=== PATIENT | female | born 1970 | race Caucasian/White ===

== ENCOUNTER → 2016-09-29 | Outpatient (CLI) | payer OTHER ==
[~2016-09-29] MED LIST: CEPH500C2 PO; ESOM20CA PO; LEVO88TA3 PO
[2016-09-29 17:17] LABS: BASO % 0.5 %; BASO ABS # 0.05 K/uL (0-0.2); EOS % 1.8 %; HEMATOCRIT 32.7 % (37-47); IG% 0.3 %; LYMPH % 39.5 %; LYMPH ABS # 4.14 K/uL (1.2-3.4); MEAN CELL VOLUME 66.7 fL (80-100); MEAN CORPUSCULAR HEMOGLOBIN 20.6 pg (25-34); MEAN CORPUSCULAR HGB CONC 30.9 g/dl (32-36); MEAN PLATELET VOLUME 8.6 fL (7.4-10.4); MONO % 5.8 %; NEUT % 52.1 %; PLATELET COUNT 549 K/uL (130-400); WHITE BLOOD COUNT 10.47 K/uL (4.8-10.8)
[2016-09-29 17:35] LABS: ESTIMATED AVERAGE GLUCOSE 171 mg/dl; HA1C FLAG Normal (Normal)
[2016-09-29 18:51] LABS: COMPLETE YES; MICROCYTOSIS PRESENT; OVALOCYTES 1+; POLYCHROMASIA 1+; SCHISTOCYTES 1+
[2016-09-29 18:59] LABS: AST/SGOT 20 U/L (15-37); BLOOD UREA NITROGEN 9 mg/dl (7-18); BUN/CREATININE RATIO 10.3 (10-20); CALCIUM 8.3 mg/dl (8.5-10.1); CARBON DIOXIDE 25 mmol/L (21-32); CHLORIDE 105 mmol/L (98-107); CREATININE 0.87 mg/dl (0.60-1.20); GLUCOSE 159 mg/dl (70-99); SODIUM 140 mmol/L (136-145)
[2016-09-29 19:13] LABS: ALB/GLOB RATIO 0.9 (0.9-2); ALKALINE PHOSPHATASE 117 U/L (45-117); ALT/SGPT 35 U/L (12-78)
[2016-09-29 20:04] LABS: RATIO 4.6 mcg/mg (0-30.0)
== END | disposition home or self-care (01) ==
LOC: C.LABBFT 13:03
PROVIDERS: ATTEND Internal Medicine
DX: E03.9 Hypothyroidism, unspecified (principal); E11.9 Type 2 diabetes mellitus without complications

== ENCOUNTER → 2016-10-19 | Outpatient (CLI) | payer OTHER | END | disposition home or self-care (01) | LOC: C.PAPS 10:14 | PROVIDERS: ATTEND Obstetrics & Gynecology | DX: Z12.4 Encounter for screening for malignant neoplasm of cervix (principal) ==

== ENCOUNTER 2017-09-16 14:07 | Emergency (ER) | payer OTHER ==
[~2017-09-16] VITALS: Ht 167.6 cm; Wt 96.9 kg
[2017-09-16 14:15] VITALS: Ht 167.6 cm; Wt 96.9 kg
[2017-09-16] MEDS ORDERED: ONDANSETRON INJ 2 MG/ML 2 ML VIAL IV STA (14:29)
[2017-09-16] MEDS ORDERED: KETOROLAC TROMETHAMINE 30 MG/ML VIAL IV STA (14:29)
[2017-09-16] MEDS ORDERED: MoRPHine SULFATE 10 MG/ML CARP/VIAL IV STA (14:29)
[2017-09-16 14:42] VITALS: TEMP 36.6
--- NOTE | 2017-09-16 14:51 | DIAGNOSTIC IMAGING REPORT ---
CHEST ONE VIEW PORTABLE CLINICAL HISTORY: 46 years-old Female presenting with epigastric abd pain. TECHNIQUE: Portable upright AP view of the chest was obtained. COMPARISON: None. FINDINGS: Cardiomediastinal silhouette normal. Lungs and pleural spaces clear. Osseous structures normal. Upper abdomen normal. IMPRESSION: 1. No acute cardiopulmonary disease. Electronically signed by: Shayne Raya M.D. 09/16/2017 2:50 PM Dictated Date/Time: 09/16/2017 2:49 PM
[2017-09-16 15:08] LABS: BASO % 0.4 %; BASO ABS # 0.05 K/uL (0-0.2); EOS % 1.6 %; EOS ABS # 0.21 K/uL (0-0.5); HEMATOCRIT 49.6 % (37-47); HEMOGLOBIN 17.5 g/dL (12.0-16.0); IG# 0.04 K/uL (0.00-0.02); LYMPH % 29.3 %; LYMPH ABS # 3.85 K/uL (1.2-3.4); MEAN CORPUSCULAR HEMOGLOBIN 31.8 pg (25-34); MEAN CORPUSCULAR HGB CONC 35.3 g/dl (32-36); MEAN PLATELET VOLUME 9.5 fL (7.4-10.4); MONO % 4.5 %; MONO ABS # 0.59 K/uL (0.11-0.59); NEUT % 63.9 %; PLATELET COUNT 334 K/uL (130-400); RED CELL DISTRIBUTION WIDTH CV 14.1 % (11.5-14.5); RED CELL DISTRIBUTION WIDTH SD 46.3 fL (36.4-46.3); WHITE BLOOD COUNT 13.14 K/uL (4.8-10.8)
[2017-09-16] MEDS ORDERED: ATOR10TA82 PO (15:09)
[2017-09-16] MEDS ORDERED: FERR1TAB23 PO (15:09)
[2017-09-16] MEDS ORDERED: ASPI325T39 PO (15:09)
[2017-09-16 15:34] LABS: ALBUMIN 4.2 gm/dl (3.4-5.0); ALT/SGPT 44 U/L (12-78); BLOOD UREA NITROGEN 8 mg/dl (7-18); CALCIUM 8.9 mg/dl (8.5-10.1); CARBON DIOXIDE 24 mmol/L (21-32); CREATININE 0.76 mg/dl (0.60-1.20); GLUCOSE 223 mg/dl (70-99); LIPASE 188 U/L (73-393); POTASSIUM 3.8 mmol/L (3.5-5.1); SODIUM 135 mmol/L (136-145)
[2017-09-16 15:39] LABS: ALKALINE PHOSPHATASE 111 U/L (45-117); AST/SGOT 21 U/L (15-37); TOTAL PROTEIN 8.7 gm/dl (6.4-8.2)
[2017-09-16] MEDS ORDERED: OPTIRAY 320 IV PRN (16:30)
--- NOTE | 2017-09-16 16:57 | DIAGNOSTIC IMAGING REPORT ---
ABD/PELVIS IV CONTRAST ONLY CLINICAL HISTORY: 46 years-old Female presenting with LUQ abd pain . TECHNIQUE: Multidetector CT of the abdomen and pelvis was performed after the administration of intravenous contrast. IV contrast: 93 mL of Optiray 320. A dose lowering technique was used consistent with the principles of ALARA (as low as reasonably achievable). COMPARISON: None. CT DOSE (mGy.cm): The estimated cumulative dose is 1009.78 mGy.cm. 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 Lung bases: Minimal basilar opacities, likely atelectasis. Normal heart size. No pericardial or pleural effusion. Liver: Normal morphology. No liver lesion. Patent hepatic vasculature. Biliary: Mild biliary ductal prominence likely a reservoir effect in the post cholecystectomy state. Gallbladder surgically absent. Pancreas: Normal. Spleen: Normal. Adrenal glands: Normal. Kidneys and ureters: Focal cortical deformity laterally at the right upper pole possibly prior infection, infarct, or trauma. Hypodensity in the interpolar region of the left kidney likely simple cyst. Additional smaller suspected cyst at the left upper pole and in the right renal parenchyma. No nephrolithiasis. No hydronephrosis. Ureters normal. Bladder: Incompletely evaluated secondary to underdistention. Pelvic organs: Normal uterus. Simple appearing 4.5 cm cyst in the left ovary. Right ovary normal. Bowel: Normal appendix. No bowel obstruction. Peritoneal cavity: No free fluid or intraperitoneal gas. Lymph nodes: No enlarged lymph nodes in the abdomen or pelvis. Vasculature: Atherosclerosis of the normal caliber abdominal aorta. IVC patent. Abdominal wall: Small fat-containing umbilical hernia. Musculoskeletal: Bilateral pars defects of L5. IMPRESSION: 1. No acute intra-abdominal pathology. 2. 4.5 cm functional cyst in the left ovary. In a premenopausal female with a probably benign cysts of this size, follow-up ultrasound is recommended in 6-12 weeks per the management [employer] incidental findings committee recommendations. Electronically signed by: Shayne Raya M.D. 09/16/2017 4:56 PM Dictated Date/Time: 09/16/2017 4:50 PM
[2017-09-16 18:00] VITALS: BP 136/88; PULSE 88; O2SAT 96
--- NOTE | 2017-09-16 20:13 | EMERGENCY ROOM VISIT NOTE ---
History Report prepared by Mynor: Yohana Ornelas Under the Supervision of: Dr. Niles Radford D.O. First contact with patient: 14:19 Chief Complaint: ABDOMINAL PAIN Stated Complaint: LEFT SIDE PAIN Nursing Triage Summary: patient c/o left upper abdominal pain, nausea and diarrhea x4 days. History of Present Illness The patient is a 46 year old female who presents to the Emergency Room with complaints of persistent abdominal pain that began 4 days ago. The patient states that avoiding movement helps relieve her pain. Any kind of twisting turning bending or palpation of her left upper quadrant worsens the pain. She notes her discomfort feels like a pulled muscle. The patient states that she has nausea, diarrhea, and headaches. She notes she had a sinus infection and bronchitis 2 weeks ago. The patient states she has had a cholecystectomy. She notes her last normal menstrual period was one month ago. The patient states that last year she had a blood clot in her pinky toe, noting she was placed on Aspirin. Pt denies change in vision, fevers, chest pain, shortness of breath, vomiting, pain with urination, and melena. Patient denies diabetes, hypertension , hyperlipidemia, CAD, history of sudden at a young age, and smoking. Patient denies swelling of calves, recent trips, history of immobilization or recent surgery, hemoptysis, history of malignancy, or control/estrogen use. Source of History: patient Onset: 4 days ago Position: abdomen Quality: other (abdominal pain) Timing: other (persistent) Modifying Factors (Worsening): movement Associated Symptoms: + nausea, + diarrhea Review of Systems See HPI for pertinent positives & negatives. A total of 10 systems reviewed and were otherwise negative. Past Medical & Surgical Medical Problems: (1) Bronchitis (2) Sinus infection Family History Patient reports no known family medical history. Social History Smoking Status: Never Smoker Alcohol Use: none Drug Use: none Marital Status: in relationship Housing Status: lives with significant other Occupation Status: employed Current/Historical Medications Scheduled Aspirin (Aspirin Ec), 325 MG PO DAILY Atorvastatin (Lipitor), Unknown Dose PO DAILY Esomeprazole Magnesium (Nexium), 20 MG PO DAILY Ferrous Sulfate (Iron), 325 MG PO DAILY Levothyroxine Sodium (Levothyroxine Sodium), 88 MCG PO DAILY Allergies Coded Allergies: Pantoprazole (Verified Allergy, Unknown, SWELLING OF LIPS, 09/16/17) Physical Exam Vital Signs Date Time Temp Pulse Resp B/P (MAP) Pulse Ox O2 Delivery O2 Flow Rate FiO2 09/16/17 18:00 88 18 136/88 96 09/16/17 16:00 88 18 140/90 96 Room Air 09/16/17 14:42 36.6 91 20 142/87 99 Room Air 09/16/17 14:37 91 09/16/17 14:15 36.6 103 20 149/100 99 Room Air Physical Exam GENERAL: Sitting up in bed, holding LUQ, alert, well appearing, well nourished, minimal distress, non-toxic EYE EXAM: normal conjunctiva. OROPHARYNX: no exudate, no erythema, lips, buccal mucosa, and tongue normal and mucous membranes are moist NECK: supple, no nuchal rigidity, no adenopathy, non-tender LUNGS: Clear to auscultation. Normal chest wall mechanics HEART: no murmurs, S1 normal and S2 normal ABDOMEN: Tenderness in epigastric region, tracking over left inferior rib cage to left mid axillary. Abdomen soft, normo-active bowel sounds, no masses, no rebound or guarding. BACK: Back is symmetrical on inspection and there is no deformity, no midline tenderness, no CVA tenderness. SKIN: no rashes and no bruising UPPER EXTREMITIES: upper extremities are grossly normal. LOWER EXTREMITIES: No pitting edema. Calves are equal bilateral NEURO EXAM: Normal sensorium, cranial nerves II-XII grossly intact, normal speech, no gross weakness of arms, no gross weakness of legs. Medical Decision & Procedures ER Provider Diagnostic Interpretation: Radiology results as stated below per my review and the radiologist's interpretation: CHEST ONE VIEW PORTABLE CLINICAL HISTORY: 46 years-old Female presenting with epigastric abd pain. TECHNIQUE: Portable upright AP view of the chest was obtained. COMPARISON: None. FINDINGS: Cardiomediastinal silhouette normal. Lungs and pleural spaces clear. Osseous structures normal. Upper abdomen normal. IMPRESSION: 1. No acute cardiopulmonary disease. Electronically signed by: Shayne Raya M.D. 09/16/2017 2:50 PM Dictated Date/Time: 09/16/2017 2:49 PM ABD/PELVIS IV CONTRAST ONLY CLINICAL HISTORY: 46 years-old Female presenting with LUQ abd pain . TECHNIQUE: Multidetector CT of the abdomen and pelvis was performed after the administration of intravenous contrast. IV contrast: 93 mL of Optiray 320. A dose lowering technique was used consistent with the principles of ALARA (as low as reasonably achievable). COMPARISON: None. CT DOSE (mGy.cm): The estimated cumulative dose is 1009.78 mGy.cm. 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 Lung bases: Minimal basilar opacities, likely atelectasis. Normal heart size. No pericardial or pleural effusion. Liver: Normal morphology. No liver lesion. Patent hepatic vasculature. Biliary: Mild biliary ductal prominence likely a reservoir effect in the post cholecystectomy state. Gallbladder surgically absent. Pancreas: Normal. Spleen: Normal. Adrenal glands: Normal. Kidneys and ureters: Focal cortical deformity laterally at the right upper pole possibly prior infection, infarct, or trauma. Hypodensity in the interpolar region of the left kidney likely simple cyst. Additional smaller suspected cyst at the left upper pole and in the right renal parenchyma. No nephrolithiasis. No hydronephrosis. Ureters normal. Bladder: Incompletely evaluated secondary to underdistention. Pelvic organs: Normal uterus. Simple appearing 4.5 cm cyst in the left ovary. Right ovary normal. Bowel: Normal appendix. No bowel obstruction. Peritoneal cavity: No free fluid or intraperitoneal gas. Lymph nodes: No enlarged lymph nodes in the abdomen or pelvis. Vasculature: Atherosclerosis of the normal caliber abdominal aorta. IVC patent. Abdominal wall: Small fat-containing umbilical hernia. Musculoskeletal: Bilateral pars defects of L5. IMPRESSION: 1. No acute intra-abdominal pathology. 2. 4.5 cm functional cyst in the left ovary. In a premenopausal female with a probably benign cysts of this size, follow-up ultrasound is recommended in 6-12 weeks per the management [employer] incidental findings committee recommendations. Electronically signed by: Shayne Raya M.D. 09/16/2017 4:56 PM Dictated Date/Time: 09/16/2017 4:50 PM Laboratory Results 09/16/17 14:56 Red Blood Count 5.51, Mean Corpuscular Volume 90.0, Mean Corpuscular Hemoglobin 31.8, Mean Corpuscular Hemoglobin Concent 35.3, Mean Platelet Volume 9.5, Neutrophils (%) (Auto) 63.9, Lymphocytes (%) (Auto) 29.3, Monocytes (%) (Auto) 4.5, Eosinophils (%) (Auto) 1.6, Basophils (%) (Auto) 0.4, Neutrophils # (Auto) 8.40, Lymphocytes # (Auto) 3.85, Monocytes # (Auto) 0.59, Eosinophils # (Auto) 0.21, Basophils # (Auto) 0.05 09/16/17 14:56 Test 09/16/17 14:56 09/16/17 15:40 White Blood Count 13.14 K/uL (4.8-10.8) Red Blood Count 5.51 M/uL (4.2-5.4) Hemoglobin 17.5 g/dL (12.0-16.0) Hematocrit 49.6 % (37-47) Mean Corpuscular Volume 90.0 fL (80-100) Mean Corpuscular Hemoglobin 31.8 pg (25-34) Mean Corpuscular Hemoglobin Concent 35.3 g/dl (32-36) Platelet Count 334 K/uL (130-400) Mean Platelet Volume 9.5 fL (7.4-10.4) Neutrophils (%) (Auto) 63.9 % Lymphocytes (%) (Auto) 29.3 % Monocytes (%) (Auto) 4.5 % Eosinophils (%) (Auto) 1.6 % Basophils (%) (Auto) 0.4 % Neutrophils # (Auto) 8.40 K/uL (1.4-6.5) Lymphocytes # (Auto) 3.85 K/uL (1.2-3.4) Monocytes # (Auto) 0.59 K/uL (0.11-0.59) Eosinophils # (Auto) 0.21 K/uL (0-0.5) Basophils # (Auto) 0.05 K/uL (0-0.2) RDW Standard Deviation 46.3 fL (36.4-46.3) RDW Coefficient of Variation 14.1 % (11.5-14.5) Immature Granulocyte % (Auto) 0.3 % Immature Granulocyte # (Auto) 0.04 K/uL (0.00-0.02) D-Dimer 240 ug/L FEU (0-500) Anion Gap 9.0 mmol/L (3-11) Est Creatinine Clear Calc Drug Dose 109.7 ml/min Estimated GFR () 109.8 Estimated GFR (Non- 94.7 BUN/Creatinine Ratio 9.9 (10-20) Calcium Level 8.9 mg/dl (8.5-10.1) Total Bilirubin 0.6 mg/dl (0.2-1) Direct Bilirubin < 0.1 mg/dl (0-0.2) Aspartate Amino Transf (AST/SGOT) 21 U/L (15-37) Alanine Aminotransferase (ALT/SGPT) 44 U/L (12-78) Alkaline Phosphatase 111 U/L (45-117) Troponin I < 0.015 ng/ml (0-0.045) Total Protein 8.7 gm/dl (6.4-8.2) Albumin 4.2 gm/dl (3.4-5.0) Lipase 188 U/L (73-393) Urine Color YELLOW Urine Appearance CLEAR (CLEAR) Urine pH 6.5 (4.5-7.5) Urine Specific [place] 1.009 (1.000-1.030) Urine Protein NEG (NEG) Urine Glucose (UA) TRACE (NEG) Urine Ketones NEG (NEG) Urine Occult Blood NEG (NEG) Urine Nitrite NEG (NEG) Urine Bilirubin NEG (NEG) Urine Urobilinogen NEG (NEG) Urine Leukocyte Esterase NEG (NEG) Urine WBC (Auto) 0 /hpf (0-5) Urine RBC (Auto) 0-4 /hpf (0-4) Urine Hyaline Casts (Auto) 0 /lpf (0-5) Urine Epithelial Cells (Auto) 0-5 /lpf (0-5) Urine Bacteria (Auto) NEG (NEG) Urine Test NEG (NEG) Laboratory results per my review. Medications Administered Medications (Trade) Dose Ordered Sig/Satnam Route Start Time Stop Time Status Last Admin Dose Admin Morphine Sulfate (MoRPHine SULFATE INJ) 6 mg NOW STAT IV 09/16/17 14:29 09/16/17 14:31 DC 09/16/17 15:06 6 MG Ondansetron HCl (Zofran Inj) 4 mg NOW STAT IV 09/16/17 14:29 09/16/17 14:31 DC 09/16/17 15:06 4 MG Ketorolac Tromethamine (Toradol Inj) 15 mg NOW STAT IV 09/16/17 14:29 09/16/17 14:31 DC 09/16/17 15:06 15 MG ECG Indication: abdominal pain Rate (beats per minute): 82 Rhythm: sinus rhythm Findings: no ectopy, other (no axis) ED Course ED COURSE: Vital signs were reviewed and showed normal vital signs. The patients medical record was reviewed The above diagnostic studies were performed and reviewed. ED treatments and interventions as stated above. 1419: The patient was evaluated in room B6. A complete history and physical examination was performed. 1429: Ordered Toradol Inj 15mg IV, Zofran Inj 4mg IV, and Morphine sulfate 6mg IV. 1630: Ordered Ioversol 100ml IV. 1711: Upon reevaluation, the patient is feeling significantly better. I discussed my findings with the patient and she understands and agrees with the treatment plan. The patient was discharged home. Medical Decision Differential diagnosis: Etiologies such as appendicitis, diverticulitis, PUD, biliary pathology, UTI, pancreatitis, obstruction, mesenteric ischemia, aortic pathology, infections, inflammatory bowel disease, renal colic, as well as others were entertained. The patient is a 46 year old female who presents to the ED with complaints of abdominal pain. On exam she has epigastric abdominal pain which is reproducible on exam and tracks over her left lower chest wall. She is acutely tender on palpation. Pain worsens with twisting turning bending. I do believe this to be muscle skeletal. Labs were obtained and show mild leukocytosis of 13 ,000. BMP all LFTs was unremarkable. PA she was slightly elevated at 223. She has been followed for diabetes in the past and is currently trying to manage this with diet. LFTs along with bilirubin and lipase was unremarkable. Troponin was negative with pain that has been present greater than 8 hours. D- dimer was negative. UA was negative. was negative. The CT of abdomen and pelvis shows a left ovarian cyst. Chest importance of having this followed up 6 weeks. Chest x-ray was unremarkable. EKG was not diagnostic. Patient was given Toradol and morphine. Patient's symptoms improved significant. Based on exam I do believe this chest pain is muscle skeletal. Favor the leukocytosis likely secondary to the diarrhea. She was discharged follow-up with her PCP. Discussed with Pt concerning signs and symptoms to watch out for. Pt was instructed to follow up with their PCP and discussed with the patient their option to return to the ED at anytime for persistent or worsening symptoms. The appropriate anticipatory guidance and out-patient management, including indications for return to the emergency department, were explained at length to the patient and understood. Medication Reconcilliation Current Medication List: was personally reviewed by me Impression Primary Impression: Left-sided chest wall pain Additional Impressions: Diarrhea Ovarian cyst Scribe Attestation The scribe's documentation has been prepared under my direction and personally reviewed by me in its entirety. I confirm that the note above accurately reflects all work, treatment, procedures, and medical decision making performed by me. Departure Information Dispostion Home / Self-Care Referrals Beau Ryan M.D. (PCP) Forms Call Back Authorization, HOME CARE DOCUMENTATION FORM, IMPORTANT VISIT INFORMATION Patient Instructions [facility] Additional Instructions Please follow up with your primary care doctor with in the next 24 hours. Any worsening of your symptoms, please return to the ED immediately. This includes any fevers greater than 100.4, worsening pain, chest pain, shortness breath, persistent nausea, vomiting, unable to eat or drink, or any other concerning signs or symptoms from your standpoint. You were given medications during this visit that will inhibit your ability to drive, operate machinery and work. Please do NOT drive, operate machinery, drink alcohol or work for the next 12hrs. Please take tylenol or Motrin as needed for pain. Please have your ovarian cyst followed up on with an ultrasound in 6 months. Problem Qualifiers Additional Impressions: Diarrhea Diarrhea type: unspecified type Qualified Codes: R19.7 - Diarrhea, unspecified Ovarian cyst Laterality: unspecified laterality Qualified Codes: N83.209 - Unspecified ovarian cyst, unspecified side
== END 2017-09-16 18:12 | disposition home or self-care (01) ==
LOC: C.EDB 14:09
DX: R07.89 Other chest pain (principal); R19.7 Diarrhea, unspecified; N83.209 Unspecified ovarian cyst, unspecified side; Z79.82 Long term (current) use of aspirin

== ENCOUNTER 2017-12-26 03:34 | Emergency (ER) | payer OTHER ==
[~2017-12-26] VITALS: Ht 167.6 cm; Wt 94.8 kg
[~2017-12-26 03:34] MED LIST changes: +ASPI325T39 PO; +ATOR10TA82 PO; -CEPH500C2 PO; +FERR1TAB23 PO
[2017-12-26 03:53] VITALS: BP 150/95; PULSE 95; TEMP 36.6; O2SAT 96; Ht 167.6 cm; Wt 94.8 kg
[2017-12-26] MEDS ORDERED: FERR1TAB62 PO (04:09)
[2017-12-26] MEDS ORDERED: LEVO112T2 PO (04:09)
[2017-12-26] MEDS ORDERED: GLC/500 PO (04:09)
[2017-12-26] MEDS ORDERED: BUPR150T7 PO (04:09)
[2017-12-26] MEDS ORDERED: ATOR80TA PO (04:09)
[2017-12-26] MEDS ORDERED: PHEN-876 PO (04:13)
[2017-12-26] MEDS ORDERED: CEPH500C2 PO (04:13)
[2017-12-26] MEDS ORDERED: PHENAZOPYRIDINE HOME PACK 200 MG VIAL PO ONE (04:15)
[2017-12-26] MEDS ORDERED: CEPHALEXIN 500MG HOME PACK 1 EA BTL PO ONE (04:15)
--- NOTE | 2017-12-26 04:27 | EMERGENCY ROOM VISIT NOTE ---
History First contact with patient: 04:00 Chief Complaint: URINARY SYMPTOMS Stated Complaint: BAD UTI Nursing Triage Summary: pt reports frequency, bladder pain, burning and blood in urine since last night. History of Present Illness The patient is a 47 year old female who presents to the Emergency Room with complaints of urinary frequency, urgency and dysuria For the past day. Blood sugars been running around 100. No recent UTI. Patient denies vomiting, flank pain, abdominal pain, fever, chills. She took Azo without relief. Review of Systems An 10 system review of systems was completed with positives and pertinent negatives listed in the HPI. Past Medical/Surgical History Medical Problems: (1) Bronchitis (2) Sinus infection Family History Patient reports no known family medical history. Social History Smoking Status: Current Every Day Smoker Alcohol Use: none Drug Use: none Marital Status: in relationship Housing Status: lives with significant other Occupation Status: employed Current/Historical Medications Scheduled Aspirin (Aspirin Ec), 325 MG PO QAM Atorvastatin (Lipitor), 80 MG PO QPM Bupropion Hcl (Wellbutrin Sr), 150 MG PO BID Cephalexin Monohydrate (Keflex), 500 MG PO BID Esomeprazole Magnesium (Nexium), 20 MG PO QPM Ferrous Sulfate (Ferrous Sulfate), 325 MG PO QPM Levothyroxine Sodium (Synthroid), 112 MCG PO QAM Metformin Hcl (Glucophage), 500 MG PO QAM Phenazopyridine HCl (Pyridium), 200 MG PO TID Physical Exam Vital Signs Date Time Temp Pulse Resp B/P (MAP) Pulse Ox O2 Delivery O2 Flow Rate FiO2 12/26/17 03:53 36.6 95 20 150/95 96 Room Air Physical Exam VITALS: Vitals are noted on the nurse's note and reviewed by myself. Vital signs stable. GENERAL: Pleasant female, in no acute distress, nondiaphoretic, well-developed well-nourished. SKIN: Capillary reflex less than 2 seconds. HEENT: Normocephalic. PERRLA. EOMI. Nares patent. Mucous membranes moist. Neck is supple without nuchal rigidity. HEART: Regular rate and rhythm without murmurs gallops or rubs. LUNGS: Clear to auscultation bilaterally without wheezes, rales or rhonchi. No retractions or accessory muscle use. ABDOMEN: Positive bowel sounds x 4. Normal tympanic percussion. Soft, nontender, without masses or organomegaly. Quinonez sign negative. No guarding or rebound tenderness. No CVA tenderness MUSCULOSKELETAL: No gross musculoskeletal defects. NEURO: Patient was alert and oriented to person place and time. Normal sensation to light and sharp touch. No focal neurological deficits. Medical Decision & Procedures ED Course Prior records reviewed and summarized as above. Triage Nursing notes reviewed. The patient's history was concerning for urinary symptoms. Differential diagnosis: Etiologies such as UTI, cystitis, renal colic, pyelonephritis, as well as others were entertained.. Physical examination: The physical examination was consistent with UTI ER treatment provided: Pyridium, Keflex On reassessment the patient felt better. Diagnostics interpreted by me: The labs revealed urine concerning for infection and sent for culture This appears to be UTI. Patient was started on antibiotics. She was advised to monitor her blood sugars. She is advised to follow-up with family care in a few days here and here sooner for fevers, vomiting, flank pain, worsening signs or symptoms or as needed. Patient is nontoxic and afebrile. She had no CVA tenderness. She was not vomiting. She was well-appearing. By the evaluation outlined above emergent etiologies such as pyelonephritis, as well as others were deemed relatively unlikely. The pt informed about the findings as listed above. All questions were answered and pleased with the treatment. Return instructions were outlined and the patient was discharged in stable condition. Outpatient prescription management: Keflex, pyridium Referral: The patient was referred back to primary care physician for follow-up in 2 to 3 days for a recheck of the current condition. The chart was completed utilizing [employer] Speech voice recognition software. Grammatical errors, random word insertions, pronoun errors, and incomplete sentences are an occassional consequence of this system due to software limitations, ambient noise, and hardware issues. Any formal questions or concerns about the content, text, or information contained within the body of this dictation should be directly addressed to the physician biology laboratory assistant for clarification. Medical Decision As above Medication Reconcilliation Current Medication List: was personally reviewed by me Blood Pressure Screening Patient's blood pressure: Normal blood pressure Impression Primary Impression: Urinary tract infection Departure Information Dispostion Home / Self-Care Condition GOOD Prescriptions Phenazopyridine HCl (Pyridium) 200 Mg Tab 200 MG PO TID for 2 Days, #6 TAB Prov: Janay Rios .ORI 12/26/17 Cephalexin Monohydrate (KEFLEX) 500 Mg Cap 500 MG PO BID for 5 Days, #10 CAP Prov: Janay Rios PA-C 12/26/17 Forms HOME CARE DOCUMENTATION FORM, Work Instructions, Return To Work: 1 day IMPORTANT VISIT INFORMATION Patient Instructions UTI, [facility] [employer] Additional Instructions Monitor your blood sugars. Keflex 500 mg: Take one pill twice daily for 7 days for your urine infection. All antibiotics can cause diarrhea. If this occurs and you feel worse or it does not resolve in 1-2 days follow up with your doctor or return to the Emergency Department as this could be signs of serious underlying problems. Any medication can cause an allergic reaction, stop the pills immediately and return to the ER for rash, hives, breathing difficulties, or swelling. Pyridium 200mg: Take one pill three times daily as needed for urinary discomfort. This medication will turn your urine orange. This is normal and nothing to be concerned about. Ibuprofen(Motrin, Advil) may be used for fever or pain. Use 600mg every six hours as needed. Take with food. Avoid using more than 2400mg in a 24 hour period. Do not use 2400mg per day for more than three consecutive days without physician direction. Prolonged inappropriate use can lead to stomach upset or ulcers. (AND/OR) Acetaminophen(Tylenol) may be used for fever or pain. Use 1000mg every six hours as needed. Avoid using more than 3000mg in a 24 hour period. Rest and drink plenty of fluids as tolerated. Slow sips of water or sports drinks are recommended instead of large amounts all at once. Continue current medications. Once your stomach is settled start with a clear liquid diet (jello, soup broth, etc.) and then advance as tolerated. You should avoid full, heavy meals for about 24 hrs from the time your symptoms resolved. Return to the ER immediately for worsening or persistent abdominal/back pain, vomiting, fevers, worsening of your condition, or as needed. Follow up with your primary physician within 2-3 days for a recheck of the current condition. Work Instructions Return To Work: 1 day Problem Qualifiers Primary Impression: Urinary tract infection Urinary tract infection type: acute cystitis Hematuria presence: with hematuria Qualified Codes: N30.01 - Acute cystitis with hematuria
== END 2017-12-26 04:20 | disposition home or self-care (01) ==
LOC: C.EDB 03:35 → C.EDA 04:20
DX: N39.0 Urinary tract infection, site not specified (principal); F17.210 Nicotine dependence, cigarettes, uncomplicated; Z79.82 Long term (current) use of aspirin; Z79.899 Other long term (current) drug therapy; Z79.84 Long term (current) use of oral hypoglycemic drugs